=== PATIENT | female | born 1985 | race Caucasian/White ===

== ENCOUNTER 2020-06-24 16:32 | Outpatient (CLI) | payer OTHER ==
[~2020-06-24 16:32] MED LIST: ANAprox Ds 550mg TAB PO; OXYC1TAB9 PO
== END 2020-06-24 18:00 | disposition home or self-care (01) ==
LOC: PPH VACUNA 16:32
PROVIDERS: ATTEND Emergency Medicine Pediatric Emergency Medicine
DX: Z23 Encounter for immunization (principal)

== ENCOUNTER 2020-07-15 | Outpatient (CLI) | payer OTHER | END 2020-07-15 07:44 | disposition home or self-care (01) | LOC: PPH VACUNA | DX: Z23 Encounter for immunization (principal) ==